=== PATIENT | female | born 1995 | race Caucasian/White ===

== ENCOUNTER 2024-02-08 17:25 | Emergency (ER) | payer OTHER ==
[~2024-02-08] VITALS: Ht 165.1 cm; Wt 86.4 kg
[2024-02-08 17:27] VITALS: BP 114/67; PULSE 102; RESP 16; TEMP 98.3
[2024-02-08] MEDS ORDERED: CHOL25TA4 PO (17:32)
[2024-02-08] MEDS ORDERED: VALA500T42 PO (17:32)
[2024-02-08] MEDS ORDERED: SERT-158 PO (17:32)
[2024-02-08] MEDS ORDERED: ETHI1TAB26 PO (17:32)
[2024-02-08] MEDS ORDERED: SPIR-37 PO (17:32)
[2024-02-08 17:56] LABS: EOSINOPHILS % (AUTO) 0.8 % (1.0-6.0); HEMATOCRIT 40.4 % (36-46); HEMOGLOBIN 14.5 g/dL (12.0-16.0); LYMPHOCYTES # (AUTO) 3.1 K/uL (1.0-4.8); LYMPHOCYTES % (AUTO) 34.4 % (22.0-44.0); MEAN CORPUSCULAR HEMOGLOBIN 30.1 pg (26.0-34.0); MEAN CORPUSCULAR HGB CONC 35.8 G/dL (31.0-37.0); MEAN CORPUSCULAR VOLUME 84 fL (80-100); MONOCYTES # (AUTO) 0.6 K/uL (0.1-1.0); MONOCYTES % (AUTO) 6.4 % (2.0-9.0); NEUTROPHILS # (AUTO) 5.1 K/uL (1.8-7.7); NEUTROPHILS % (AUTO) 57.4 % (40.0-70.0); PLATELET COUNT (AUTO) 370 K/uL (150-450); RED BLOOD CELL COUNT(AUTO) 4.81 MIL/uL (4.00-5.20); RED CELL DISTRIBUTION WIDTH 12.5 % (11.5-14.5); WHITE BLOOD COUNT (AUTO) 8.9 K/uL (4.5-11.0)
[2024-02-09 11:07] LABS: HEPATITIS A ANTIBODY IGM Negative (Negative); HEPATITIS B CORE IGM Negative (Negative); HEPATITIS C AB (EIA) Non Reactive (Non Reactive)
== END 2024-02-08 18:09 | disposition home or self-care (01) ==
LOC: EMS 17:35
DX: Z77.21 Contact with and (suspected) exposure to potentially hazardous body fluids (principal); F41.9 Anxiety disorder, unspecified; F32.A Depression, unspecified; Z90.49 Acquired absence of other specified parts of digestive tract
CPT/HCPCS: 80074; 85025; 99283

== ENCOUNTER 2024-03-04 10:23 | Emergency (ER) | payer OTHER ==
[~2024-03-04] VITALS: Ht 165.1 cm; Wt 68.2 kg
[~2024-03-04 10:23] MED LIST: CHOL25TA4 PO; ETHI1TAB26 PO; SERT-158 PO; SPIR-37 PO; VALA500T42 PO
[2024-03-04 10:28] VITALS: TEMP 98
[2024-03-04 11:45] VITALS: BP 120/75; PULSE 70; RESP 14
[2024-03-04] MEDS: PERTUSS(ACELL),DIPH,TET/PF 0.5 ML SYRINGE [ADULT] IM. ONE (11:51)
[2024-03-05 08:06] LABS: HEPATITIS C AB (EIA) Non Reactive (Non Reactive)
== END 2024-03-04 12:00 | disposition home or self-care (01) ==
LOC: EMS 10:23
DX: S61.032A Puncture wound without foreign body of left thumb without damage to nail, initial encounter (principal); W46.0XXA Contact with hypodermic needle, initial encounter; Y93.89 Activity, other specified; Y92.89 Other specified places as the place of occurrence of the external cause; Y99.8 Other external cause status
CPT/HCPCS: 84460; 86704; 86706; 86803; 87340; 90471; 90715; 99283